=== PATIENT | female | born 1975 | race Caucasian/White ===

== ENCOUNTER 2017-09-19 06:37 | Day surgery (SDC) | payer OTHER ==
[2017-09-16 11:05] VITALS: BMI 22.7
[2017-09-19] MEDS ORDERED: methylPREDNISolone ACET (DEPO) 40 MG/1 ML VIAL ONE (07:06)
[2017-09-19] MEDS ORDERED: THROMBIN (BOVINE) 5,000 UNIT VIAL TP ONE ×2 (07:06→09:25)
[2017-09-19] MEDS ORDERED: LIDOCAINE 1%/EPI 1:100000 (20 ML MULTI DOSE VIAL) ONE (07:06)
[2017-09-19] MEDS ORDERED: oxyCODONE HCL 10 MG SUSTAINED ACTING TABLET PO ONE (07:13)
[2017-09-19] MEDS ORDERED: GABAPENTIN 300 MG CAPSULE (FP) PO ONE (07:15)
[2017-09-19] MEDS ORDERED: oxyCODONE HCL 10 MG SUSTAINED ACTING TABLET ONE (07:34)
[2017-09-19] MEDS ORDERED: GABAPENTIN 300 MG CAPSULE (FP) ONE (07:35)
[2017-09-19] MEDS ORDERED: DEXAMETHASONE SOD PHOSPHATE/PF 10 MG/ML SDV ONE (07:36)
[2017-09-19] MEDS ORDERED: MIDAZOLAM HCL 2 MG/2 ML SINGLE DOSE VIAL ONE ×7 (07:36→09:27)
[2017-09-19] MEDS ORDERED: BUPIVACAINE HCL/PF (5 MG/ML) 30 ML VIAL IJ ONE (07:37)
[2017-09-19] MEDS ORDERED: PROPOFOL 20 ML ONE (07:39)
[2017-09-19] MEDS ORDERED: SUCCINYLCHOLINE CHLORIDE 200 MG/10 ML VIAL ONE (07:39)
[2017-09-19] MEDS ORDERED: DEXAMETHASONE SOD PHOSPHATE 4 MG/1 ML VIAL ONE (07:40)
[2017-09-19] MEDS ORDERED: ONDANSETRON 4 MG/2 ML VIAL ONE (07:40)
[2017-09-19] MEDS ORDERED: PHENYLEPHRINE HCL 10 MG/1 ML SINGLE DOSE VIAL ONE (07:40)
[2017-09-19] MEDS ORDERED: LIDOCAINE HCL/PF 2% SDV 5ML VIAL ONE (07:40)
[2017-09-19] MEDS ORDERED: ePHEDrine SULFATE 50 MG/1 ML AMPULE ONE (07:43)
--- NOTE | 2017-09-19 07:50 | HP ---
History & Physical Update - History History: No Change - Physical Physical: No Change - Assessment Assessment: No Change - Plan Plan: No Change (full H&) inchart from BELKIS on 09/06/[address] Rios on 09/07/2017)
[2017-09-19] MEDS ORDERED: LIDOCAINE HCL 1%, 10 MG/ML (50 mL VIAL) IJ ONE (09:00)
[2017-09-19] MEDS ORDERED: GELATIN SPONGE,ABSORBABLE 1 GM PACKET TP ONE (09:26)
[2017-09-19] MEDS ORDERED: oxyCODONE HCL 5 MG TABLET PO PRN (09:31)
[2017-09-19] MEDS ORDERED: ONDANSETRON 4 MG/2 ML VIAL IVPUSH PRN (09:31)
[2017-09-19] MEDS ORDERED: LACTATED RINGERS SOLUTION 1,000 ML IV SCH (09:45)
[2017-09-19] MEDS ORDERED: methylPREDNISolone ACET (DEPO) 40 MG/1 ML VIAL IM ONE (10:03)
--- NOTE | 2017-09-19 10:41 | OP ---
Operative Note - Note: Operative Date: 09/19/17 Pre-Operative Diagnosis: spinal stenosis, herniated disc L5-S1 Operation: laminectomy of L5, S1 with microdisectomy Surgeon: Tu Rios Principal Clerk Typist: Carolyn Arauz Anesthesiologist/AUTO DESIGN CHECKER: Funmilayo Palumbo Anesthesia: Spinal Specimens Removed: disc L5-S1 Estimated Blood Loss (mls): 20 Fluid Volume Replaced (mls): 700 Operative Report Dictated: Yes
--- NOTE | 2017-09-19 10:42 | SURG ---
Surgery Testing Shaking Shipping Note Testing Shaking Shipping: Carolyn Arauz PA-C Date of Service: 09/19/17 Diagnosis: spinal stenosis, herniated disc L5-S1 Procedure: laminectomy of L5-S1 with microdisectomy I was present for the entirety of the operative procedure. For further detail, please refer to operative report. Visit type - Case Type Case Type: Scheduled Admission - Emergency Emergency Visit: No - New patient This patient is new to me today: Yes Date on this admission: 09/19/17
[2017-09-19 10:49] VITALS: PULSE 84
[2017-09-19 12:15] VITALS: TEMP 97.6
[2017-09-19 12:39] VITALS: BP 106/58
--- NOTE | 2017-09-19 12:49 | OP ---
DATE OF OPERATION: 09/19/2017 PREOPERATIVE DIAGNOSIS: Spinal stenosis L5-S1. POSTOPERATIVE DIAGNOSIS: Spinal stenosis L5-S1. PROCEDURE PERFORMED: Laminectomy L5-S1. SURGEON: Tu Rios MD LUMBER LOADER: TAMMY Martinez ESTIMATED BLOOD LOSS: 50 mL. IV FLUIDS: Per Anesthesia. ANESTHESIA: Spinal/TLIP. COMPLICATIONS: None. DISPOSITION: The patient was brought to the PACU in stable condition. INDICATIONS FOR SURGERY: The patient is a 42-year-old female who has been suffering from pain from her back down her legs. X-rays and MRI were completed, which noted that she had spinal stenosis at L5-S1 secondary to a herniated disk. She had gone through an exhaustive course of treatment for this, which included medications, physical therapy as well as injections. Unfortunately, her pain continued to persist despite all this. At this point, risks, benefits, and alternatives were discussed, and the patient consented to surgery. DESCRIPTION OF PROCEDURE: The patient was brought to the operating room by the Anesthesia staff. After appropriate patient identification was performed, spinal anesthesia was given. The patient was able to position herself prone onto the OR table. A TLIP block was also given. The patient was able to position herself to avoid all bony prominences. Two needles were placed into her back to gianfranco off the L5, S1 segments. X-ray was taken to confirm this was correct. The needle was removed, and 10 mL of lidocaine with epinephrine was injected into the back. At this time, her back was prepped and draped in a sterile manner. At this point, a time-out was completed. An incision was made from the top of L5 down to the bottom of S1. Dissection was carried down to the fascia. Fascia was then split open at this time. Appropriate retractor was then placed in. A spinal needle was placed onto the L5 lamina to gianfranco off the L5-S1 level. X-ray was taken to confirm this was correct. Needle was removed, and the microscope was brought in. At this point, the interspinous ligament at L5-S1 was removed. A portion of the spinous process at L5 was removed. A portion of the L5 lamina and S1 lamina were removed. The flavum was identified. It was removed. A complete decompression was performed such that by the end of the procedure, the S1 nerve root appeared to be well decompressed. The nerve was mobilized medially. Disk herniation was noted. It was removed at this time. By the time of the procedure, the S1 nerve root appeared to be well decompressed. All bleeding was well controlled at this time. Steri-Strips was placed over the nerve root. FloSeal was placed over that. The fascia was closed with a No. 1 Vicryl suture. The subcutaneous tissue was closed with 2-0 Vicryl suture. The skin was closed with 3-0 Monocryl suture. Dermabond was applied. Steri-Strips were applied. A sterile dressing was applied. The patient was placed supine on the OR bed and brought to the PACU in stable condition. Christina BURT/[id number]
[2017-09-19] MEDS ORDERED: MIDAZOLAM HCL 2 MG/2 ML SINGLE DOSE VIAL IVPUSH ONE (14:07)
--- NOTE | 2017-09-21 12:50 | PATH ---
Surgical Pathology Report Patient Name: KAYLA CHIRINOS [facility]. Rec. #: [id number] /Age/Gender: 1975 (Age: 42) / F Account: [id number] Location: [facility] Taken: 09/19/2017 Received: 09/19/2017 Reported: 09/21/2017 Physicians: Tu Rios M.D. Specimen(s) Received L5-S1 DISC Clinical History Spinal stenosis Final Diagnosis DISC L5-S1, LAMINECTOMY: CARTILAGE WITH DEGENERATIVE CHANGES. Electronically Signed Sigrid Guzman M.D. Gross Description Received in formalin labeled "L5-S1 disc," is a 1.7 x 1.4 x 0.3 cm aggregate of ferrer fragments of fibrocartilaginous tissue. The specimen is entirely submitted in one cassette. 09/19/2017 [facility]09/19/2017
== END 2017-09-19 12:25 | disposition home or self-care (01) ==
LOC: FASU 06:37
PROVIDERS: ATTEND Orthopaedic Surgery Orthopaedic Surgery of the Spine
PROC: 01NB0ZZ Release Lumbar Nerve, Open Approach (ICD-10-PCS; principal; 2017-09-19 08:35)
DX: M48.07 Spinal stenosis, lumbosacral region (principal)
CPT/HCPCS: 72100-TC-FY; 84703; 88304-TC; 94760